=== PATIENT | male | born 1940 | race Caucasian/White ===

== ENCOUNTER 2025-03-06 05:45 | Emergency (ER) | payer OTHER, SELFPAY ==
[2025-03-06 05:46] VITALS: BMI 33.5
[2025-03-06 05:56] VITALS: BP 121/101
[2025-03-06 05:57] VITALS: BP 147/79
[2025-03-06 05:58] VITALS: BP 147/79
[2025-03-06 06:00] VITALS: BP 129/73
--- NOTE | 2025-03-06 06:21 | ED.GENMED ---
History of Present Illness
General
Chief Complaint: Back Pain
Source: patient and ambulance crew
Exam Limitations: none
Time Seen by Provider: 03/06/25 06:08
Nursing documentation reviewed up to this point in time: agreed with
History of Present Illness
History of Present Illness:
84-year-old male with history as noted presents to the ER for evaluation of back pain after fall. Patient reports that the fall occurred a week ago. 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
and he was walking with her to the bathroom when she lost her balance and fell backwards into him. He also fell backwards onto his bottom/back. He says he did not hit his head or pass out. He was able to crawl over to the table so that he can get
up and call EMS and they came to help his up. He says he did not note any injuries at the time and did not have any pain immediately after the fall. Since then he has developed progressively worsening pain in the right flank radiating towards
the right hip which prompted him to come to the ER. He has been taking Tylenol he says with some improvement. He denies any shooting pains down the legs or really any pains at all in the arms and legs 'aside from occasional old-age pains.' He
denies any numbness or weakness in the extremities. He denies any bowel or bladder incontinence issues. He denies any headache or neck pain since the fall. He does have a history of A-fib but is not on blood thinners aside from baby aspirin.
Review of Systems
Review of Systems
All Other Systems: ROS reviewed and negative except as documented in HPI and ROS
Respiratory: Denies trouble breathing
Cardiac: Denies chest pain
ABD/GI: Denies abdominal pain, nausea or vomiting
: Reports flank pain; Denies incontinence
Musculoskeletal: Reports back pain; Denies neck pain
Neurological: Denies dizzy, headache, weakness or numbness
Phy Exam
Physical Exam
Physical Exam:
General: Awake, alert, oriented x3; no acute distress
Head: Normocephalic, atraumatic
Eyes: Conjunctiva normal, EOMI, PERRL bilaterally
Throat: Airway intact, handling secretions
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
Lungs: Breathing comfortably no distress
Heart: Regular rate; no chest wall tenderness or bruising
Abd: Soft, non distended, nontender
Back: No signs of trauma to the back or flank and no midline tenderness of the thoracic and lumbar spine; he does have some mild tenderness in the paraspinal musculature of the lumbar region as well as over the posterior aspect of the pelvic bones
mainly posterior iliac crest
Neuro: Cranial nerves grossly intact, speech fluid, motor and sensory intact in all extremities
Skin: No lacerations or abrasions noted
Extremities: No overt signs of trauma to the extremities; he moves both arms through good range of motion in all large joints without pain and has no tenderness in the arms; there is no tenderness in the legs, has some pain on flexion of the right
hip but only mild pain is able to move it through full range of motion; no pain in the rest of the lower extremities on range of motion of the large joints; good pulses throughout
Scores
Heart Failure Risk
Heart Failure Risk Score: Not Applicable
Heart Score for Chest Pain Patients
STEMI patient?: Not applicable
Withdrawal Assessment of Alcohol
Withdrawal Assessment Completed?: Not applicable
Course
Orders/Labs/Results
Orders:
Orders
03/06/25 06:20
Acetaminophen [Tylenol] 1,000 mg PO NOW STA
Lidocaine [Lidocaine 4% Patch] 1 patch TOPICAL ONCE ONE
Apply Lidocaine patch(s) to:: low back
03/06/25 06:21
CT Abd/pel Without Iv Or Oral Urgent
Comment:
Reason For Exam: right flank and hip pain s/p fall
03/06/25 07:04
Interrogate Pacemaker- Treatment ONCE
03/06/25 07:05
Electrocardiogram (*1) Urgent
Reason for Study: Fatigue / Weakness
EKG- Treatment ONCE
Vital Signs
Initial and Last Documented VS:
Initial Vital Signs
Temp Pulse Resp Pulse Ox
36.5 C 60 18 96
03/06/25 05:51 03/06/25 05:51 03/06/25 05:51 03/06/25 05:51
Last Documented Vital Signs
Temp Pulse Resp BP Pulse Ox
36.5 C 60 18 129/73 96
03/06/25 05:51 03/06/25 06:30 03/06/25 06:30 03/06/25 06:00 03/06/25 06:30
MDM/Problems Addressed
Differential Diagnosis Includes:
Back strain, bulging/herniated disc, compression fracture, pelvic fracture, flank hematoma
MDM/Problems Addressed:
84-year-old male presents after a fall last week complaining of worsening right low back pain. No red flag symptoms. Vitals and exam as above. Plan to check CT to evaluate for vertebral or pelvic fractures or flank hematoma. Will treat
symptomatically. Reassess after the above.
CT reviewed and shows no compression fractures or pelvic fractures or other acute posttraumatic abnormalities. Multiple incidental findings noted and discussed with patient and CT report provided for outpatient follow-up. Symptoms reasonably
controlled with Tylenol and Lidoderm, Toradol and I think given his age risk of opioids or other stronger pain medications outweighs benefits if able to manage with more conservative measures. Stable for discharge, follow-up with primary care
physician. We did do an EKG and interrogate his device in an abundance of caution given his history however he is adamant that he did not pass out and that his fall last week was mechanical while helping his . [employer] device report
shows no events since October. All questions answered.
*Radiology
Radiology exam reviewed: radiology read reviewed
*Pulse Oximetry
SaO2: 98
Oxygen Mode of Delivery: Room air
Patient hypoxic: no (98%)
*EKG
Interpreted by ED Provider?: Yes
Heart Rate: 60
Rate: normal
Rhythm: ventricular paced
*Critical Care Note
Total Time (30-74mins, 75-104mins- exclusive of procedures): Not Applicable
Data Reviewed
Source: patient and ambulance crew
Further Testing Considered But Not Given:
Considered need for CT head at this elderly gentleman with a fall on anticoagulation but given no reported head strike, normal neurostatus without any symptoms, occurrence of fall a week ago no indication for emergent CT head today
ED Attending Note
-
Portions of this chart may have been created with voice recognition software.� Occasional wrong word or��sound alike� substitutions may have occurred due to the inherent limitations of voice recognition software.
Discharge Plan
Departure
Patient Disposition: Home (Routine Discharge)
Date of Disposition: 03/06/25
Time of Disposition: 07:30
Patient with high blood pressure during this ER visit?: Yes
Discharge Problem:
Low back strain, Incidental pulmonary nodule, AAA (abdominal aortic aneurysm)
Prescriptions:
New
lidocaine [Lidocan III] 5 % adhesive patch,medicated
1 patch topical DAILY Qty: 30 0RF
Referrals:
UNKNOWN - PT DOES,NOT KNOW [Family Provider]
Activity Restrictions/Additional Instructions:
You should take Tylenol as needed for pain and you can also apply Lidoderm patches to the back to supplement Tylenol. You can use a heating pack as needed this may provide some relief. You should follow-up with your primary doctor soon as possible
to be reassessed after ER visit and to follow-up on incidental findings on CT.
Thank you for visiting the Emergency Department at [facility].
1. Please schedule a follow up appointment as directed. Call first thing tomorrow morning to make an appointment.
2. If indicated, please take your medications as instructed and indicated on discharge paperwork.
3. If any of your symptoms do not improve, or persist, or become more severe within 6-12 hours, please return to the emergency department for further care.
4. Please return to the emergency department if you develop a headache, neck pain/stiffness, fever greater than 100.4F, chest pain, shortness of breath, persistent nausea, vomiting, slurred speech, difficulty walking, numbness/tingling, weakness,
signs of infection or any other symptoms that are worrisome to you.
Please call [phone] if you have any questions.
Interventions
Interventions:
*Risk Screen - Suicide Last Done: 03/06/25 05:51
*General Assessment Last Done: 03/06/25 05:51
*Neglect/Abuse Screening Last Done: 03/06/25 05:51
*ED- Fall Risk Assessment Last Done: 03/06/25 05:51
*ED COVID-19 Vaccine History Last Done: 03/06/25 05:51
ED-Musculoskeletal Assessment Last Done: 03/06/25 06:01
Discharge Date and Time
Print Language: LAO
[2025-03-06] MEDS: LIDOCAINE 4% PATCH 1 PATCH TOPICAL (06:25)
[2025-03-06] MEDS: TYLENOL 1000 MG PO (06:25)
[2025-03-06 07:00] VITALS: BP 125/70
[2025-03-06 08:00] VITALS: BP 121/73
[2025-03-06] MEDS: TORADOL 30 MG IM (08:02)
== END 2025-03-06 09:38 | disposition home or self-care (01) ==
LOC: EMR 05:45
PROVIDERS: EMERGENCY PHYSICIAN Emergency Medicine
DX: S39.012A Strain of muscle, fascia and tendon of lower back, initial encounter (principal); I71.43 Infrarenal abdominal aortic aneurysm, without rupture; R91.1 Solitary pulmonary nodule; R10.9 Unspecified abdominal pain; W03.XXXA Other fall on same level due to collision with another person, initial encounter; Y93.F9 Activity, other caregiving; R03.0 Elevated blood-pressure reading, without diagnosis of hypertension; I48.91 Unspecified atrial fibrillation; E11.9 Type 2 diabetes mellitus without complications; Z79.82 Long term (current) use of aspirin; Z79.84 Long term (current) use of oral hypoglycemic drugs; Z96.653 Presence of artificial knee joint, bilateral; Z96.642 Presence of left artificial hip joint
CPT/HCPCS: 99284; 96372; 74176; 93005

== ENCOUNTER 2025-06-26 11:58 | Inpatient (IN) | payer OTHER, SELFPAY ==
[2025-06-26] VITALS (11 sets, daily range): BP systolic 103–144; BP diastolic 58–78; PULSE 61–72; BMI 34.1; BMI 33.7
[2025-06-26 09:02] LABS: Hematocrit 35.8 % (39.0-52.0); Hemoglobin 11.9 g/dL (13.0-18.0); Mean Corp Hgb Conc. 33.2 g/dL (33.0-37.0); Mean Corpuscular Volume 96.8 fL (80.0-94.0); Nucleated Red Blood Cells % 0 % (-); Platelet Count 240 10^3/uL (130-400); Red Cell Dist. Width 14.1 % (11.5-14.5)
--- NOTE | 2025-06-26 09:06 | ED.GENMED ---
History of Present Illness
<AMADEO Moore Jr. Last Filed: 06/26/25 10:19>
General
Chief Complaint: Rectal Bleeding
Source: patient
Exam Limitations: none
Time Seen by Provider: 06/26/25 08:34
Nursing documentation reviewed up to this point in time: agreed with
History of Present Illness
History of Present Illness:
84-year-old male past medical history of A-fib s/p watchman, no longer on Eliquis, hypertension presenting to the emergency department today with concerns of bloody stool starting yesterday. No abdominal pain no shortness of breath chest pain
nausea or vomiting. Has been take meloxicam for the past 2 months for some back pain.
Review of Systems
<AMADEO Moore Jr. Last Filed: 06/26/25 10:19>
Review of Systems
Allergies reviewed?: Yes
All Other Systems: ROS reviewed and negative except as documented in HPI and ROS
Phy Exam
<AMADEO Moore Jr. Last Filed: 06/26/25 10:19>
Physical Exam
Physical Exam:
GENERAL: Alert , in no apparent distress
EYE: pupils equal and reactive
NECK: Supple, no significant adenopathy.
ENT: o/p clr, mmm.
CARDIAC: Regular rate and rhythm .
LUNGS: Clear breath sounds bilaterally, no acute respiratory distress, no wheezes/rales/rhonchi
ABDOMEN: Rectal examination revealing red blood, guaiac positive, soft, without focal tenderness, no r/g, no cvat
NEUROLOGICAL: Alert and oriented, no focal neuro deficits
SKIN: Warm and dry, skin intact.
MUSCULOSKELETAL: No edema, well perfused.
PSYCH: Normal and appropriate interaction.
Course
<AMADEO Moore Jr. Last Filed: 06/26/25 10:19>
Orders/Labs/Results
Orders:
Orders
06/26/25 08:36
Basic Metabolic Panel Urgent
Complete Blood Count/With Diff Urgent
Lipase Urgent
06/26/25 08:43
Type And Crossmatch [Type+Screen] Urgent
06/26/25 09:16
Pantoprazole [Protonix IV] 80 mg IV NOW STA
Abnormal Lab Results
06/26/25
08:36
RBC 3.70 L 10^6/uL
(4.70-6.10)
Hgb 11.9 L g/dL
(13.0-18.0)
Hct 35.8 L %
(39.0-52.0)
MCV 96.8 H fL
(80.0-94.0)
MCH 32.2 H pg
(27.0-31.0)
Absolute Lymphs (auto) 0.9 L 10^3/uL
(1.2-3.4)
Lymphocytes % 16.4 L %
(20.5-51.1)
BUN 29 H mg/dl
(9-20)
Glucose 130 H mg/dl
(70-99)
06/26/25 08:36
06/26/25 08:36
Vital Signs
Initial and Last Documented VS:
Initial Vital Signs
Temp Pulse Resp BP Pulse Ox
97.6 F 64 18 131/71 96
06/26/25 08:42 06/26/25 08:42 06/26/25 08:42 06/26/25 08:42 06/26/25 08:42
Last Documented Vital Signs
Temp Pulse Resp BP Pulse Ox
97.6 F 64 18 131/71 96
06/26/25 08:42 06/26/25 08:42 06/26/25 08:42 06/26/25 08:42 06/26/25 09:09
<Reddy Pascual MD - Last Filed: 06/26/25 09:20>
Orders/Labs/Results
Orders:
Orders
06/26/25 08:36
Basic Metabolic Panel Urgent
Complete Blood Count/With Diff Urgent
Lipase Urgent
06/26/25 08:43
Type And Crossmatch [Type+Screen] Urgent
06/26/25 09:16
Pantoprazole [Protonix IV] 80 mg IV NOW STA
Abnormal Lab Results
06/26/25
08:36
RBC 3.70 L 10^6/uL
(4.70-6.10)
Hgb 11.9 L g/dL
(13.0-18.0)
Hct 35.8 L %
(39.0-52.0)
MCV 96.8 H fL
(80.0-94.0)
MCH 32.2 H pg
(27.0-31.0)
Absolute Lymphs (auto) 0.9 L 10^3/uL
(1.2-3.4)
Lymphocytes % 16.4 L %
(20.5-51.1)
BUN 29 H mg/dl
(9-20)
Glucose 130 H mg/dl
(70-99)
06/26/25 08:36
06/26/25 08:36
Vital Signs
Initial and Last Documented VS:
Initial Vital Signs
Temp Pulse Resp BP Pulse Ox
97.6 F 64 18 131/71 96
06/26/25 08:42 06/26/25 08:42 06/26/25 08:42 06/26/25 08:42 06/26/25 08:42
Last Documented Vital Signs
Temp Pulse Resp BP Pulse Ox
97.6 F 64 18 131/71 96
06/26/25 08:42 06/26/25 08:42 06/26/25 08:42 06/26/25 08:42 06/26/25 09:09
<Zachary Gutiérrez Jr., PA-C - Last Filed: 06/26/25 10:19>
MDM/Problems Addressed
MDM/Problems Addressed:
84-year-old male presenting to the emergency department today with concerns of blood with bowel movement starting yesterday again today. Yesterday was with brown stool today was all red blood. Has been take meloxicam over the past few months. Not
on any other blood thinners at this time. Red blood on rectal examination. Hemoglobin 11.9 but no old for comparison. Plan to admit for monitoring and assessment.
<Zachary Gutiérrez Jr., PA-C - Last Filed: 06/26/25 10:19>
*Pulse Oximetry
SaO2: 96
Oxygen Mode of Delivery: Room air
Patient hypoxic: no (96)
*Critical Care Note
Total Time (30-74mins, 75-104mins- exclusive of procedures): Not Applicable
ED Attending Note
<Zachary Gutiérrez Jr., PA-C - Last Filed: 06/26/25 10:19>
-
Portions of this chart may have been created with voice recognition software.� Occasional wrong word or��sound alike� substitutions may have occurred due to the inherent limitations of voice recognition software.
<Reddy Pascual MD - Last Filed: 06/26/25 09:20>
ED Attending Note
Patient seen and examined by attending physician: Yes
I performed the substantive portion of visit, reviewed & personally made and approve the management plan that is documented in note by myself or AYLIN.: Yes
ED Attending Note:
I have seen and evaluated the patient with a [id number] encounter. I have spoken to the [AYLIN] and involved in the medical history, the physical exam, medical decision making.
Evaluation and management service: agree unless noted differently below.
Results interpretation: agree unless noted differently below.
84-year-old man with history of A-fib not currently on anticoagulation presenting to the emergency department rectal bleeding. Patient states that yesterday he noticed some dark blood in the stool and then today it was bright red. He is not on any
blood thinners. He does note that has been taking meloxicam intermittently for the past few months. He does not feel lightheaded dizzy. No abdominal pain. No fevers chills. During my evaluation patient is appears abdomen is soft nondistended
nontender. Per the PA he did have bright red blood per rectum. It is painless. Concern for lower GI bleed. His hemoglobin is 11. Given patient's not have any abdominal pain and likely lower GI bleed we will hold off on CT scan. Patient will
need admission. Will discuss with GI.
Discharge Plan
Departure
Patient Disposition: Admit
Date of Disposition: 06/26/25
Time of Disposition: 10:18
Admit to: Med/Surg
Admit to doctor: Do
Presentation/result/management discussed w/ accepting MD/DO: Hospitalist
Patient with high blood pressure during this ER visit?: No
Condition: Fair
Covid-19: Not Applicable
Discharge Problem:
Rectal bleed
Prescriptions:
No Action
metformin 500 mg Tablet
500 mg PO BID
atorvastatin [Lipitor] 20 mg Tablet
20 mg PO QPM
metoprolol succinate [Toprol XL] 50 mg Tablet Extended Release 24 Hr
50 mg PO BID
cyanocobalamin (vitamin B-12) 1,000 mcg Tablet
1,000 mcg PO DAILY
torsemide 10 mg Tablet
10 mg PO Q48H
aspirin 81 mg Tablet,Delayed Release (Dr/Ec)
81 mg PO DAILY
tamsulosin [Flomax] 0.4 mg Capsule
0.4 mg PO DAILY
pantoprazole [Protonix] 40 mg Tablet,Delayed Release (Dr/Ec)
40 mg PO DAILY
ferrous sulfate 325 mg (65 mg iron) Tablet
325 mg PO DAILY
finasteride 5 mg Tablet
5 mg PO QPM
cholecalciferol (vitamin D3) [Vitamin D3] 25 mcg (1,000 unit) Tablet
25 mcg PO DAILY
Referrals:
Keli Pelayo DO [Family Provider, Internal Medicine]
Interventions
Interventions:
*Risk Screen - Suicide Last Done: 06/26/25 08:37
*General Assessment Last Done: 06/26/25 08:37
*Neglect/Abuse Screening Last Done: 06/26/25 08:37
*ED COVID-19 Vaccine History Last Done: 06/26/25 08:44
*ED Influenza Vaccine History Last Done: 06/26/25 08:44
OU-Wnmrur-Yljhnkcedu Assessment Last Done: 06/26/25 08:47
ED- Pulmonary Assessment Last Done: 06/26/25 08:47
Discharge Date and Time
Print Language: THAI
[2025-06-26 09:26] LABS: Blood Urea Nitrogen 29 mg/dl (9-20); Calcium 9.0 mg/dl (8.4-10.2); Carbon Dioxide 25 mmol/L (22-30); Chloride 105 mmol/L (98-107); Glucose 130 mg/dl (70-99); Lipase 52 U/L (23-300); Sodium 136 mmol/L (135-145); eGFR > 60.00
[2025-06-26] MEDS: PROTONIX IV 80 MG IV (09:39)
--- NOTE | 2025-06-26 10:13 | HPS.HSE ---
Addendum entered and electronically signed by Jose Antonio Lopez MD 06/26/25 13:42:
Seen and examined by me independently in collaboration with the FP resident Dr. Garcia.
Past medical history/social history/medication/allergies reviewed.
Lab data and imaging data reviewed.
Patient presents with bloody bowel movement. He had 1 yesterday and again 1 today. It was more bright red blood per rectum per patient. No abdominal pain. No nausea vomiting.
No dizziness. No chest pain or shortness of breath.
He says he had a colonoscopy 5 years ago.
He also states that a couple of years ago he had a peptic ulcer disease which was bleeding and needed blood transfusion and was treated at [facility].
He is not on any oral anticoagulants. He is on aspirin.
He is without distress. Afebrile. Pulse 61 and blood pressure was 1 4478.
S1 plus S2 heard regular. Chest was clear. Abdomen was soft and benign.
Rectal done by ER physician.
H&H on admission was 11.9 and now prior baseline to compare to. Creatinine was 1.0.
Admit to hospital for GI bleed evaluation.
Diet per GI. Continue with aspirin which is for his CAD and a stent.
Follow H&H closely.
Start on IV PPI.
Hold metformin and follow sliding scale insulin
Continue with metoprolol but hold on torsemide for now. Clinically not in heart failure without shortness of breath, JVD, chest is clear. He has a trace bilateral lower extremity edema. No prior history of heart failure per patient. EKG V paced
rhythm. Biventricular pacemaker noted. No previous EKGs to compare.
Full code
Insert correction phrase
Original Note:
Family Physician
-
Family Physician: Keli Pelayo
Chief Complaint
-
Rectal bleed
History of Present Illness
84-year-old male past medical history of A-fib s/p watchman, not on Eliquis, hypertension , Hyperlipidemia, BPH, GERD, CAD s/p stent X1, mitral valve repair, DM type II presenting to the emergency department today with concerns of bloody bowel
movement. Patient reports he noticed blood in the toilet bowel when he had a bowel movement yesterday. And again in the morning he had a second episode with liquidy stool and a significantly larger amount of blood compared with yesterday. Patient
does not report any abdominal pain, nausea/vomiting, chest pain, SOB, lightheadedness/dizziness, headaches, fever/chills. He has been using meloxicam for the past 2 months for back pain.Patient is also on aspirin. As reported by the patient -he
underwent EGD when he was hospitalized 2 years ago at [facility] diagnosed with peptic ulcer disease, reports he had melena at that time. History of colonoscopy 5 years ago.
ED course�vital stable, patient afebrile. Hemoglobin 11.9, BUN/creatinine 29/1, blood glucose 130. Patient was given IV pantoprazole. GI was consulted.
Medical History
Past Medical History
Past Medical History: Reports Other (A-fib s/p watchman, not on Eliquis, hypertension , Hyperlipidemia, BPH, GERD, CAD s/p stent X1, mitral valve repair, DM type II )
Past Surgical History: Reports Other (Mitral valve repair)
Social History
Tobacco: Non-smoker
Alcohol: None
Drug: None
Personal:
Living: Other ([facility])
Employment: Retired
Family History
Family History: Not pertinent
Allergies / Home Medications
Allergies reflects when Allergies were last updated in [employer].
Home Medications with original date entered in [employer]
Allergy/Medication List:
Allergies
Allergy/AdvReac Type Severity Reaction Status Date / Time
No Known Allergies Allergy Verified 06/26/25 08:34
Home Medications
aspirin 81 mg tablet,delayed release 81 mg PO DAILY Heart Disease/Condition 06/26/25
atorvastatin 20 mg tablet (Lipitor) 20 mg PO QPM High Cholesterol 06/26/25
cholecalciferol (vitamin D3) 25 mcg (1,000 unit) tablet (Vitamin D3) 25 mcg PO DAILY Supplement 06/26/25
cyanocobalamin (vitamin B-12) 1,000 mcg tablet 1,000 mcg PO DAILY Supplement 06/26/25
ferrous sulfate 325 mg (65 mg iron) tablet 325 mg PO DAILY Supplement 06/26/25
finasteride 5 mg tablet 5 mg PO QPM Urinary Issue 06/26/25
metformin 500 mg tablet 500 mg PO BID Diabetes 06/26/25
metoprolol succinate 50 mg tablet,extended release 24 hr (Toprol XL) 50 mg PO BID Heart Disease/Condition 06/26/25
pantoprazole 40 mg tablet,delayed release (Protonix) 40 mg PO DAILY Gastrointestinal Issue 06/26/25
tamsulosin 0.4 mg capsule 0.4 mg PO DAILY Urinary Issue 06/26/25
torsemide 10 mg tablet 10 mg PO Q48H Fluid Retention/Swelling 06/26/25
Review of Systems
-
A 12 point ROS was completed and negative except as noted: Yes
Physical Exam
Vital Signs
Vital Signs
Temp Pulse Resp BP Pulse Ox
97.6 F 64 18 131/71 96
06/26/25 08:42 06/26/25 08:42 06/26/25 08:42 06/26/25 08:42 06/26/25 09:09
Physical Exam
General: No Apparent Distress
HEENT: NormoCephalic and Atraumatic
Respiratory: Clear
Cardiac: S1/S2 and Regular Rhythm
GI: Soft, Non Distended, Normal Bowel Sounds and Tender (Very mild tenderness in the periumbilical region)
Rectal: Other (No hemorrhoids, dried blood around the anal orifice)
Musculoskeletal: Other (1+ bilateral lower extremity edema)
Skin: Warm and Dry
Neuro: Awake, Alert, Oriented, AO x 3 and Nonfocal/grossly intact
Psych: Calm
Laboratory Results
-
06/26/25 08:36
06/26/25 08:36
Laboratory Results
Total Bilirubin Cancelled 06/26/25 08:36
AST Cancelled 06/26/25 08:36
ALT Cancelled 06/26/25 08:36
Alkaline Phosphatase Cancelled 06/26/25 08:36
Lipase 52 U/L (23-300) 06/26/25 08:36
Impression/Plan
-
IMPRESSION:
84-year-old male past medical history of A-fib s/p watchman, not on Eliquis, hypertension , Hyperlipidemia, BPH, GERD, CAD s/p stent X1, mitral valve repair, DM type II presenting to the emergency department with concerns of bloody bowel movement.
PLAN:
#Acute lower GI bleeding
Etiology likely internal hemorrhoids vs diverticulosis versus angiodysplasia versus malignancy/polyps
Patient is hemodynamically stable
Hemoglobin 11.9, nothing previous to compare
Monitor H&H
Blood transfusion consent already obtained by the ER physician, and the patient is okay to undergo transfusion if there is any acute drop in hemoglobin.
IV pantoprazole twice daily
GI consulted
No plan on any procedures today as per GI
Appreciate further recommendations
#DM type II
Continue metformin
Will add SSI
#CAD s/p stent
Can continue aspirin, atorvastatin
#BPH
continue tamsulosin
Continue finasteride
#Lower extremity swelling
Will hold torsemide, soft blood pressures
#Atherosclerotic plaque/AAA
CT abdomen/pelvis 03/06/2025� Severe calcific atherosclerotic plaque in the abdominal aorta and proximal visceral arteries, Mild fusiform infrarenal abdominal aortic aneurysm (2.3 cm).Severe diverticulosis in the sigmoid colon.
Can consider repeat imaging after assessing clinical progress/reevaluation.
DVT prophylaxis�SCDs
Diet�carb controlled
DNR
--- NOTE | 2025-06-26 10:57 | CON.GI ---
Addendum entered and electronically signed by Koki Cabello Do, MD 06/26/25 16:16:
I saw and evaluated the patient. I reviewed the resident�s note and agree with findings and plan as documented in the resident�s note.
Cody is an 84yo M wit h/o afib s/p watchman and remote PUD who was admitted for painless hematochezia x2. Recent mobic use for back pain. Denies constipation but has straining since using oral iron for many years. Last Cscope 5yrs ago. Vitals
stable exam obese abdomen NTTP. Labs reviewed
Impression
- Painless hematochezia
ddx includes diverticular, hemorrhoidal or ectasia
- H/o Afib
- s/p watchman
- Remote PUD
- Recent nsaid use
- GERD
- Hyperlipidemia
- BPH
- Obesity
Recommendations
- Serial H/H
- Ok for regular diet
- Monitor stool output
- Pending above consider colonoscopy inpatient vs outpatient
- C/w PPI
Family updated bedside. Will follow with you
Original Note:
Medical History
Chief Complaint / HPI
Chief Complaint: bright red blood with BM
History of Present Illness:
84yoM PMH afib s/p watchman off anticoagulation, remote hx PUD presenting with painless blood in his stool.
Pt noticed yesterday morning he had painless, maroon colored blood with his BM. Last night, he had another BM with bright red blood and a looser stool today with blood. Denies lightheadedness or dizziness. He reports the blood was all over the
toilet bowl and surrounding the stool, not in the stool, but was unable to quantify amount. Denies any pain in his abdomen or with defecation. Pt reports normal appetite, last meal being last night. Denies nausea, vomiting, diarrhea. Denies throat
pain or reflux. He reports having very occasional, mild episodes of GERD that he does not take anything for. Russell hx abdominal surgery or hx of GI issues beyond PUD dx a few years ago that resolved with daily pantoprazole he continues to take every
day.
Pt reports not currently feeling constipated or bloated. However, he stated that he does feel constipated when he takes oral iron and tries taking small red pill laxative, likely dulcolax, to alleviate his constipation that does not work well. He
reports having about a BM a day but often feels constipated on the days he takes iron. PCP instructed him to take B12 and iron. Pt recalls being told his Hg/iron was borderline low when he was instructed to take both. He takes a baby aspirin daily,
last taken yesterday morning. Pt was prescribed meloxicam for back pain after a fall in February. He last took it last night.
Last colonoscopy he reports was over 5 years ago at [facility] [place]. At that time, he reports having no acute findings. Last EGD was what the pt recalls being a few years ago with findings of PUD. Denies having blood in his stool at that time.
Past Medical History
Past Medical History: Arrhythmias (afib) and Other (PUD a few years ago)
Past Surgical History: Other (no abdominal surgery)
Social History
Tobacco: Non-Smoker
Alcohol: None
Living: Alone (at [facility]. lives at senior living section of [facility] with dementia)
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
Allergies / Home Medications
Allergy/AdvReac Type Severity Reaction Status Date / Time
No Known Allergies Allergy Verified 06/26/25 08:34
�Medication �Instructions �Recorded
aspirin 81 mg tablet,delayed 81 mg PO DAILY Heart 06/26/25
release Disease/Condition
atorvastatin 20 mg tablet (Lipitor) 20 mg PO QPM High Cholesterol 06/26/25
cholecalciferol (vitamin D3) 25 25 mcg PO DAILY Supplement 06/26/25
mcg (1,000 unit) tablet (Vitamin
D3)
cyanocobalamin (vitamin B-12) 1,000 mcg PO DAILY Supplement 06/26/25
1,000 mcg tablet
ferrous sulfate 325 mg (65 mg 325 mg PO DAILY Supplement 06/26/25
iron) tablet
finasteride 5 mg tablet 5 mg PO QPM Urinary Issue 06/26/25
metformin 500 mg tablet 500 mg PO BID Diabetes 06/26/25
metoprolol succinate 50 mg 50 mg PO BID Heart 06/26/25
tablet,extended release 24 hr Disease/Condition
(Toprol XL)
pantoprazole 40 mg tablet,delayed 40 mg PO DAILY Gastrointestinal 06/26/25
release (Protonix) Issue
tamsulosin 0.4 mg capsule 0.4 mg PO DAILY Urinary Issue 06/26/25
torsemide 10 mg tablet 10 mg PO Q48H Fluid 06/26/25
Retention/Swelling
Review of Systems
-
History Source: Patient
All other systems: A 12 pt ROS was Negative except as stated above in HPI
Abdomen/GI: Reports Bloody Stools
Vital Signs
Temp Pulse Resp BP Pulse Ox
97.6 F 66 17 107/62 96
06/26/25 08:42 06/26/25 10:45 06/26/25 10:45 06/26/25 10:00 06/26/25 10:45
Physical Exam
Exam
General: Well Developed, Well Nourished, No Apparent Distress and Comfortable
HEENT: Normocephalic, Anicteric and Moist Mucous Membranes
Respiratory: Clear and Non Labored Respirations
Cardiac: S1/S2 and Regular Rhythm
GI: Soft, Non Tender and Non Distended
Rectal: Brown and Other (visual rectal exam performed with Dr. Nicolás Garcia, no hemorrhoids visualized); Negative Hemorrhoids
Musculoskeletal: Edema (R>L, pt reported baseline)
Skin: Warm and Dry
Neuro: AO x 3 and Nonfocal/Grossly Intact
Psych: Calm
Results
WBC 5.3 10^3/uL (4.8-10.8) 06/26/25 08:36
Hgb 11.9 g/dL (13.0-18.0) L 06/26/25 08:36
Hct 35.8 % (39.0-52.0) L 06/26/25 08:36
MCV 96.8 fL (80.0-94.0) H 06/26/25 08:36
Plt Count 240 10^3/uL (130-400) 06/26/25 08:36
Absolute Neuts (auto) 3.9 10^3/uL (1.4-6.5) 06/26/25 08:36
Sodium 136 mmol/L (135-145) 06/26/25 08:36
Potassium mmol/L (3.5-5.1) 06/26/25 08:36
Chloride 105 mmol/L (98-107) 06/26/25 08:36
Carbon Dioxide 25 mmol/L (22-30) 06/26/25 08:36
BUN 29 mg/dl (9-20) H 06/26/25 08:36
Creatinine 1.0 mg/dL (0.7-1.3) 06/26/25 08:36
Calcium 9.0 mg/dl (8.4-10.2) 06/26/25 08:36
Total Bilirubin Cancelled 06/26/25 08:36
AST Cancelled 06/26/25 08:36
ALT Cancelled 06/26/25 08:36
Alkaline Phosphatase Cancelled 06/26/25 08:36
Lipase 52 U/L (23-300) 06/26/25 08:36
Diagnostic Image Results: Ct 03/06/25
IMPRESSION:
4. Severe diverticulosis in the sigmoid colon.
5. Moderate chronic bilateral renal disease.
6. Severe calcific atherosclerotic plaque in the abdominal aorta and proximal visceral arteries.
7. Mild fusiform infrarenal abdominal aortic aneurysm (2.3 cm).
8. Mildly distended gallbladder.
12. 4.9 mm solid pulmonary nodule in the right middle lobe.
Prior GI Procedures:
EGD:
Colonoscopy:
Assessment / Plan
-
84yoM PMH afib s/p watchman off anticoagulation, remote hx PUD presenting with painless, bright red blood in his stool for the last day.
Mr Hendrickson is hemodynamically stable without lightheadedness presenting with painless, bright red blood per rectum. Denies abdominal pain or pain with defecation. Meloxicam last taken yesterday night. His symptoms are unlikely a brisk UGI bleed given
his hemodynamics and stable Hg 11.9. No epigastric pain. Last colonoscopy at [facility] that the pt reports had no significant findings within the last 10 years. Pt takes daily oral iron with reported chronic constipation. Unlikely diverticular bleed
given lack of symptomatic anemia. His symptoms align likely with internal hemorrhoidal bleed given chronicity and hx of constipation and painless bleeding. Aspirin last taken yesterday morning.
#BRBPR
- Start bowel regimen miralax daily
- Hold meloxicam. Continue home PPI
- Holding colonoscopy currently. Monitor H and H
- Transfuse H<7
PENDING ATTENDING RECOMMENDATIONS
-
-
Thank you for consultation and allowing me to participate in the patient's care. Please call the job honer GI physician during the after hours with any questions or concerns.
--- NOTE | 2025-06-26 11:28 | CM ---
Chart reviewed and spoke with patient at bedside
He lives alone in [facility]
He is ambulating with cane or walker
His Stephanie is in [facility] due to dementia
One son lives in [place]
Dtr lives in [place] who is made aware of his ED visit today
Another son lives in [place] but he is estranged
DME walker, cane and CPAP
PCP Dr Beal
Pharmacy [facility] pharmacy
no hx VN nor SNF
DCP is home with services when medically stable
CM will continue to follow up for any dcp needs
[2025-06-26 13:27] LABS: Glucose - Point of Care 115 mg/dl (70-99)
[2025-06-26] MEDS: FLOMAX 0.4 MG PO (13:56)
[2025-06-26] MEDS: LIPITOR 20 MG PO (13:59)
[2025-06-26 15:01] LABS: Hematocrit 33.6 % (39.0-52.0); Hemoglobin 10.7 g/dL (13.0-18.0)
[2025-06-26 17:00] LABS: Glucose - Point of Care 144 mg/dl (70-99)
[2025-06-26] MEDS: NOVOLOG FLEXPEN-LOW RESISTANCE SC (17:00)
[2025-06-26 17:13] LABS: Ferritin 44.8 ng/ml (17.9-464.0)
[2025-06-26] MEDS: LIPITOR PO (17:19)
[2025-06-26] MEDS: PROSCAR 5 MG PO (17:20)
[2025-06-26] MEDS: GLUCOPHAGE 500 MG PO (17:20)
[2025-06-26 17:44] LABS: Folate 13.6 ng/ml (2.76-20); Vitamin B12 461 pg/ml (239-931)
[2025-06-26] MEDS: TOPROL XL 50 MG PO (20:20)
[2025-06-26] MEDS: NSS (PRESERVATIVE FREE) IV (20:20)
[2025-06-26 21:24] LABS: Glucose - Point of Care 128 mg/dl (70-99)
[2025-06-26 22:17] LABS: Iron 47 ug/dl (49-181)
[2025-06-26 22:26] LABS: Total Iron Binding Capacity 278 ug/dl (261-462)
[2025-06-27] VITALS (9 sets, daily range): BP systolic 85–141; BP diastolic 56–76; PULSE 54–69
--- NOTE | 2025-06-27 06:28 | PTCARENOTE ---
Pt had a large bloody bowel movement. It was alot of blood in the toilet. Dark red bloody stool. VS were taken- 124/69, p-61, pulse ox- 97% room air. He is in bed, resting. Denies any pain. FINANCE EXECUTIVE notified.
--- NOTE | 2025-06-27 07:06 | W.PN.UPDATE ---
Update Note
Progress Note Update
~ 6:30 am RN reported that patient had a large, bloody bowel movement. Dark red bloody stool.
Vital signs BP 124/69, HR 61, pulsox 97 on room air. Patient resting in bed, denies any pain, dizziness, palpitations. Serial H&H ordered, next due @ 6 am. Transfuse for Hgb <8 w/active bleed. Consent scanned in chart. Type and screen done.
[2025-06-27 08:15] LABS: Glucose - Point of Care 135 mg/dl (70-99)
[2025-06-27 08:32] LABS: Albumin 3.4 g/dl (3.5-5.0); Blood Urea Nitrogen 30 mg/dl (9-20); Calcium 8.7 mg/dl (8.4-10.2); Chloride 106 mmol/L (98-107); Potassium 4.4 mmol/L (3.5-5.1); Sodium 133 mmol/L (135-145); Total Protein 6.1 g/dl (6.3-8.2)
[2025-06-27 08:35] LABS: Hematocrit 32.1 % (39.0-52.0); Hemoglobin 10.0 g/dL (13.0-18.0); Mean Corp Hgb Conc. 31.2 g/dL (33.0-37.0); Mean Corpuscular Volume 99.4 fL (80.0-94.0); Nucleated Red Blood Cells % 0 % (-); Platelet Count 206 10^3/uL (130-400); Red Cell Dist. Width 14.3 % (11.5-14.5)
[2025-06-27 08:42] LABS: ALT (SGPT) < 10 U/L (0-50); AST (SGOT) 14 U/L (17-59); Alkaline Phosphatase 58 U/L (38-126); Carbon Dioxide 24 mmol/L (22-30); Estimated Creatinine Clearance 69 ml/min; Glucose 124 mg/dl (70-99); eGFR > 60.00
[2025-06-27] MEDS: NOVOLOG FLEXPEN-LOW RESISTANCE SC ×2 (09:06→17:22)
[2025-06-27] MEDS: TOPROL XL 50 MG PO ×2 (09:08→20:50)
[2025-06-27] MEDS: VITAMIN B-12 1000 MCG PO (09:08)
[2025-06-27] MEDS: GLUCOPHAGE 500 MG PO (09:08)
[2025-06-27] MEDS: VITAMIN D3 (cholecalciferol) 25 MCG PO (09:08)
[2025-06-27] MEDS: FLOMAX 0.4 MG PO (09:08)
[2025-06-27] MEDS: ASPIR LOW (ENTERIC COATED) 81 MG PO (09:08)
[2025-06-27] MEDS: PROTONIX IV 40 MG IV ×2 (09:09→20:49)
[2025-06-27] MEDS: FLUSH (NSS) 1 FLUSH IV (09:09)
[2025-06-27] MEDS: NSS (PRESERVATIVE FREE) 10 ML IV ×2 (09:09→20:49)
[2025-06-27] MEDS: NULYTELY SOLUTION 4 LITERS PO (10:32)
[2025-06-27] MEDS: DULCOLAX 10 MG PO (10:32)
[2025-06-27 10:47] LABS: Glycohemoglobin (HgbA1c) 6.5 % (4.0-5.9)
--- NOTE | 2025-06-27 10:52 | W.PN.GI.CBS2 ---
Addendum entered and electronically signed by Koki Cabello Do, MD 06/27/25 11:59:
I saw and evaluated the patient. I reviewed the resident�s note and agree with findings and plan as documented in the resident�s note.
Patient passed another bloody BM yesterday and H/H downtrending. Vitals stable exam obese NTTP steady with cane. Labs reviewed iron deficiency
Recommendations
- CLD now and NPO at [place]
- Anticipate colonoscopy tomorrow if no significant findings seen add EGD
- C/w PPI IV daily basis
- C/w IV iron
Will follow with you
Original Note:
Today's Communication / Plan
-
PENDING ATTENDING RECOMMENDATIONS
Colonoscopy tomorrow
Assessment / Plan
-
84yoM PMH afib s/p watchman off anticoagulation, remote hx PUD presenting with painless, bright red blood in his stool for the last day.
Mr Hendrickson is hemodynamically stable without lightheadedness presenting with painless, bright red blood per rectum. Denies abdominal pain or pain with defecation. His symptoms are unlikely a brisk UGI bleed given his hemodynamics and stable Hg 11.9.
No epigastric pain. Last colonoscopy at [facility] that the pt reports had no significant findings within the last 10 years. Pt takes daily oral iron with reported chronic constipation. Aspirin last taken yesterday morning.
Today, pt continues to be hemodynamically stable without symptoms of anemia or abdominal pain but continues to have blood with his stools. Hg 10 down from 10.7 yesterday afternoon. Plan for colonoscopy tomorrow. Differential continues to include
diverticular bleed vs hemorrhoidal vs ectasia.
#BRBPR
- Hold meloxicam. Continue home PPI
- Monitor H and H
- Transfuse H<7
- Bowel prep today. Plan for colonoscopy tomorrow
- Clears. NPO before procedure
Subjective
Subjective
Date of Service: June 27, 2025
Mr. Hendrickson is feeling well today reporting continued blood and melena in stool. Pt reports significantly reduced bright red blood, but nursing and pt describe more melena today. Denies lightheadedness, dizziness, abdominal pain. He does describes a
new urgency with BM that is worse today than yesterday.
Objective
Data Reviewed
Laboratory Data:
Laboratory Results
06/27/25 07:24
06/27/25 07:24
Laboratory Results
Total Bilirubin 0.8 mg/dl (0.2-1.3) 06/27/25 07:24
AST 14 U/L (17-59) L 06/27/25 07:24
ALT < 10 U/L (0-50) 06/27/25 07:24
Alkaline Phosphatase 58 U/L (38-126) 06/27/25 07:24
Lipase 52 U/L (23-300) 06/26/25 08:36
Vital Signs and I&O:
Vital Signs
Temp Pulse Resp BP Pulse Ox
98.1 F 61 18 116/56 94
06/27/25 07:20 06/27/25 09:08 06/27/25 07:20 06/27/25 09:08 06/27/25 07:20
I&O
06/26/25 06/27/25 06/28/25
06:59 06:59 06:59
Intake Total 480 / 480
Balance 480 / 480
Physical Exam
Physical Exam
HEENT: Anicteric and Moist mucous membranes
Cardiology: Normal Sinus Rhythm
Pulmonary: Clear
GI: Soft, Non Distended and Non Tender
Extremities: No Edema
Neuro: Non Focal
--- NOTE | 2025-06-27 11:07 | W.PN.HOSP.TC ---
Today's Communication/Plan
-
Colonoscopy tomorrow
Follow H&H
Assessment / Plan
Assessment / Plan
#Acute lower GI bleeding with painless hematochezia
Etiology likely internal hemorrhoids vs diverticulosis versus angiodysplasia versus malignancy/polyps
Patient is hemodynamically stable
Hemoglobin 11.9, nothing previous to compare
Ongoing bloody bowel movement with hemoglobin dropped to 10. Blood pressure remained stable.
Monitor H&H
Aim to keep HH more than 8
IV pantoprazole twice daily
GI colonoscopy tomorrow
#DM type II
Hold metformin
Will add SSI
#CAD s/p stent
Can continue aspirin, atorvastatin
#BPH
continue tamsulosin
Continue finasteride
#Lower extremity swelling
Will hold torsemide
#Atherosclerotic plaque/AAA
CT abdomen/pelvis 03/06/2025� Severe calcific atherosclerotic plaque in the abdominal aorta and proximal visceral arteries, Mild fusiform infrarenal abdominal aortic aneurysm (2.3 cm).Severe diverticulosis in the sigmoid colon.
Can consider repeat imaging after assessing clinical progress/reevaluation.
DVT prophylaxis�SCDs
Diet�carb controlled
Discussed with family at bedside
DNR
Anticipated Discharge: > 48 hours
Subjective/Interval History
-
Date of Service: June 27, 2025
Had a large bloody bowel movement yesterday evening.
Denies any abdominal pain. Denies any dizziness. No chest pain or shortness of breath.
Objective Data
-
Labs:
Laboratory Results
06/27/25
07:24
WBC 5.0
Hgb 10.0 L
Hct 32.1 L
Plt Count 206
Sodium 133 L
Potassium 4.4
Chloride 106
Carbon Dioxide 24
BUN 30 H
Creatinine 1.0
Glucose 124 H
Calcium 8.7
Total Bilirubin 0.8
AST 14 L
ALT < 10
Alkaline Phosphatase 58
Vital Signs:
Vital Signs
Temp Pulse Resp BP Pulse Ox
98.1 F 61 18 116/56 94
06/27/25 07:20 06/27/25 09:08 06/27/25 07:20 06/27/25 09:08 06/27/25 07:20
I&O
06/26/25 06/27/25 06/28/25
06:59 06:59 06:59
Intake Total 480 / 480
Balance 480 / 480
Physical Exam
-
General: Comfortable
Respiratory: Clear to Auscultation and Non Labored Respirations; Negative Accessory Resp Muscle Use
Cardiac: Regular Rhythm and S1/S2; Negative Tachycardic
GI: Soft, Nontender, Nondistended and Normal Bowel Sounds
Neuro: AO x 3
Data Reviewed
-
Labs: Labs Reviewed by me
[2025-06-27 11:59] LABS: Glucose - Point of Care 159 mg/dl (70-99)
[2025-06-27] MEDS: NOVOLOG FLEXPEN-LOW RESISTANCE 1 UNITS SC (12:40)
--- NOTE | 2025-06-27 13:49 | PN.CDI ---
CDI
- -
CDI:
Physician Documentation Request
Admit Date: 06/26/25 11:58
Dear Doctor,
Please review the following and provide your response in the progress notes.
Clinical Indicators:
Pt admitted for Acute lower GI bleeding with painless hematochezia
Pt with PMH of A-fib s/p watchman, not on Eliquis
If possible, please provide further specificity regarding atrial fibrillation, such as:
Paroxysmal atrial fibrillation - terminates spontaneously or with intervention within 7 days of onset
Persistent atrial fibrillation - episodes of continuous AF that last more than 7 days and do not self-terminate
Permanent atrial fibrillation - when a decision has been made to accept the presence of AF and there is no further attempt to restore or maintain sinus rhythm
Other - please specify
Unable to further specify
Use of terms such as suspected, likely, concern for, or probable (associated with a specific diagnosis that is being evaluated, monitored, or treated as if it exists) are acceptable and can be coded in the inpatient setting, when documented at the
time of discharge.
Thank you,
Amada Sutherland RN, BSN
CDI Specialist
[place] [facility]
Please use your independent medical judgment in providing your response.
[2025-06-27 16:48] LABS: Glucose - Point of Care 143 mg/dl (70-99)
--- NOTE | 2025-06-27 17:07 | PTCARENOTE ---
Pt AAO x3, RIVERO; OOB to BSC with assist x1/cane, no c/o weakness/dizziness. VSS. Telemetry:V-paced rhythm. On room air-pulseox 98%, no SOB noted. Abd obese, soft, maurice small amts clear liquids; stated he is 'full' after taking Go-lytely bowel
prep; pt aware of NPO past midnight for colonoscopy 06/28. Pt had very large amts of dark formed stool and melena after taking bowel prep. Voids in BSC (mixed with BM). Resting in bed at present. Will continue to monitor.
[2025-06-27] MEDS: LIPITOR 20 MG PO (17:56)
[2025-06-27] MEDS: PROSCAR 5 MG PO (17:56)
[2025-06-27 23:49] LABS: Glucose - Point of Care 112 mg/dl (70-99)
[2025-06-28] VITALS (8 sets, daily range): BP systolic 18–130; BP diastolic 56–73
[2025-06-28 06:24] LABS: Glucose - Point of Care 125 mg/dl (70-99)
[2025-06-28 07:27] LABS: Hematocrit 28.7 % (39.0-52.0); Hemoglobin 9.1 g/dL (13.0-18.0); Mean Corp Hgb Conc. 31.7 g/dL (33.0-37.0); Mean Corpuscular Volume 98.6 fL (80.0-94.0); Platelet Count 205 10^3/uL (130-400); Red Cell Dist. Width 14.4 % (11.5-14.5)
[2025-06-28 12:04] LABS: Glucose - Point of Care 142 mg/dl (70-99)
[2025-06-28] MEDS: ASPIR LOW (ENTERIC COATED) PO (12:18)
[2025-06-28] MEDS: VITAMIN D3 (cholecalciferol) 25 MCG PO (12:19)
[2025-06-28] MEDS: VITAMIN B-12 1000 MCG PO (12:19)
[2025-06-28] MEDS: TOPROL XL 50 MG PO ×2 (12:19→21:38)
[2025-06-28] MEDS: PROTONIX IV 40 MG IV ×2 (12:19→20:00)
[2025-06-28] MEDS: NSS (PRESERVATIVE FREE) 10 ML IV ×2 (12:19→21:37)
[2025-06-28] MEDS: FLOMAX 0.4 MG PO (12:19)
--- NOTE | 2025-06-28 12:35 | W.PN.HOSP.TC ---
Addendum entered and electronically signed by Jose Antonio Lopez MD 06/29/25 10:25:
Hyponatremia -suspect hypovolemia related -follow
Original Note:
Today's Communication/Plan
-
Start on clears.
Follow H&H.
Assessment / Plan
Assessment / Plan
#Acute lower GI bleeding with painless hematochezia secondary to diverticular bleed
Colonoscopy today showed
Preparation of the colon was poor with an extensive amount of old
blood, clots and stool throughout the colon. This was washed
extensively with fresher red blood within the sigmoid colon upon
withdrawal suggestive of ongoing bleeding.
- The examined portion of the ileum was normal without any old or
fresh blood.
- A few, shallow, well-healed ulcers in the ascending colon.
Endoscopically, suspicious for NSAID-induced ulcerations. Not the
source of presentation. Biopsied.
- Diverticulosis in the entire examined colon. This was most
pronounced within the sigmoid colon with fresh red blood seen within
the sigmoid colon suggestive of a left-sided diverticular hemorrhage.
- The distal rectum and anal verge are normal on retroflexion view.
- The examination was otherwise normal on direct and retroflexion
views.
Stat CT angiogram showed no evidence of active bleeding.
Patient asymptomatic without dizziness today. Blood pressure 124/66. H&H low drop from 11.9-9.1 today.
Discussed with GI-start on clear liquids
Follow H&H closely
Aim to keep HH more than [address] angiogram if there is significant rectal bleeding again
#DM type II
Hold metformin
Continue with SSI
#CAD s/p stent
Can atorvastatin. Hold aspirin for today due to significant bleeding in the colon. Patient without angina or chest pain.
#BPH
continue tamsulosin
Continue finasteride
#Lower extremity swelling
Will hold torsemide
#Atherosclerotic plaque/AAA
CT abdomen/pelvis 03/06/2025� Severe calcific atherosclerotic plaque in the abdominal aorta and proximal visceral arteries, Mild fusiform infrarenal abdominal aortic aneurysm (2.3 cm).Severe diverticulosis in the sigmoid colon.
Can consider repeat imaging after assessing clinical progress/reevaluation.
DVT prophylaxis�SCDs
Diet�carb controlled
Discussed with family at bedside
DNR
Discussed with GI
Anticipated Discharge: > 48 hours
Subjective/Interval History
-
Date of Service: June 28, 2025
Came back from colonoscopy which showed large amount of blood. Subsequently had a stat CT angiogram which was negative.
Currently denying any nausea vomiting or abdominal pain. No dizziness. Denies any shortness of breath.
Objective Data
-
Labs:
Laboratory Results
06/28/25 06/28/25 06/28/25
06:30 09:00 17:00
WBC 3.3 L
Hgb 9.1 L Pending Pending
Hct 28.7 L Pending Pending
Plt Count 205
Vital Signs:
Vital Signs
Temp Pulse Resp BP Pulse Ox
97.9 F 61 18 124/66 96
06/28/25 11:24 06/28/25 11:24 06/28/25 11:24 06/28/25 11:24 06/28/25 11:24
I&O
06/27/25 06/28/25 06/29/25
06:59 06:59 06:59
Intake Total 480 / 480 1240 / 1240
Balance 480 / 480 1240 / 1240
Physical Exam
-
General: Comfortable
Respiratory: Clear to Auscultation (Anteriorly), Non Labored Respirations and Accessory Resp Muscle Use
Cardiac: Regular Rhythm and S1/S2
GI: Soft, Nontender, Nondistended and Normal Bowel Sounds
Neuro: AO x 3
Data Reviewed
-
Labs: Labs Reviewed by me
--- NOTE | 2025-06-28 12:49 | CM ---
Chart reviewed. Care ongoing.
Colonoscopy today
Start on clear liquids
CM will cont following for d/c needs
Plan: Home, no needs at this time
[2025-06-28 13:06] LABS: Hematocrit 28.6 % (39.0-52.0); Hemoglobin 8.9 g/dL (13.0-18.0)
[2025-06-28 16:28] LABS: Glucose - Point of Care 170 mg/dl (70-99)
[2025-06-28] MEDS: PROSCAR 5 MG PO (17:12)
[2025-06-28] MEDS: LIPITOR 20 MG PO (17:12)
[2025-06-28] MEDS: NOVOLOG FLEXPEN-LOW RESISTANCE 1 UNITS SC (17:12)
[2025-06-28 17:19] LABS: Hematocrit 29.6 % (39.0-52.0); Hemoglobin 9.5 g/dL (13.0-18.0)
[2025-06-28 21:24] LABS: Glucose - Point of Care 133 mg/dl (70-99)
[2025-06-29 01:49] LABS: Hematocrit 25.7 % (39.0-52.0); Hemoglobin 8.2 g/dL (13.0-18.0)
[2025-06-29 03:53] VITALS: BP 102/58
[2025-06-29 06:31] LABS: Hematocrit 27.0 % (39.0-52.0); Hemoglobin 8.4 g/dL (13.0-18.0); Mean Corp Hgb Conc. 31.1 g/dL (33.0-37.0); Mean Corpuscular Volume 99.3 fL (80.0-94.0); Platelet Count 194 10^3/uL (130-400); Red Cell Dist. Width 14.6 % (11.5-14.5)
--- NOTE | 2025-06-29 06:42 | W.PN.GI.CBS2 ---
Today's Communication / Plan
-
Drop in Hgb however likely lag and suspect resolving diverticular hemorrhage without signs to suggest recurrent GI bleeding. If recurrent brisk hematochezia or other concern for re-bleeding, would obtain stat CTA and IR consult if (+). GI will
continue to follow.
Assessment / Plan
-
Mr. Hendrickson is a 84 y.o male with a past medical history of A FIb (s/p watchman, off a/c) and history of PUD with recent NSAID use who presented with painless hematochezia concerning for diverticular hemorrhage.
#Hematochezia 2/2
#Diverticular Hemorrhage
#Acute Blood Loss Anemia
#Few, Well-healed Colonic Ulcers
#Recent NSAIDs
#A Fib (off a/c)
S/p EGD/colonoscopy 06/28/25: EGD with mild gastroduodenitis (felt 2/2 NSAIDs) otherwise unremarkable upper GI tract. Colonoscopy revealed large amount of blood throughout colon with fresh red blood within sigmoid colon suggestive of left-sided
diverticular hemorrhage, otherwise normal ileum and few shallow-based well-healed ulcers in the ascending colon (felt 2/2 NSAIDs). Eventual CTA WWO contrast 06/28/2025- Impression: No intraluminal extravasation of contrast to suggest active
hemorrhage at the time of imaging. Mild sigmoid diverticulosis without evidence of diverticulitis
Ongoing drop in H/h however likely lag from prior diverticular bleed without further brisk hematochezia. Still passing old blood without concern for recurrent diverticular hemorrhage. Continues to remain HD-stable.
Recommendations:
- Tolerating CLD, may ADAT if repeat Hgb remains stable
- Trend Hgb with CBC q 12 hrs, transfuse for goal Hgb > 7.0
- Await path results from EGD/Colon and suspect NSAID-induced ulcerations in colon given appearance and not source of presentation
- No plans for repeat endoscopic evaluation at this time
- If recurrent large volume hematochezia, significant drop in Hgb > 2 grams, or concern for HD-instability would obtain stat CTA in attempts of localization and consult IR if (+)
- Rest of ongoing supportive care as per primary team
GI will continue to follow. Please call with any questions or concerns.
Subjective
Subjective
Date of Service: June 29, 2025
- S/p EGD/colonoscopy 06/28/25: EGD with mild gastroduodenitis (felt 2/2 NSAIDs) otherwise unremarkable upper GI tract. Colonoscopy revealed large amount of blood throughout colon with fresh red blood within sigmoid colon suggestive of left-sided
diverticular hemorrhage, otherwise normal ileum and few shallow-based well-healed ulcers in the ascending colon (felt 2/2 NSAIDs)
- CTA WWO contrast 06/28/2025- Impression: No intraluminal extravasation of contrast to suggest active hemorrhage at the time of imaging. Mild sigmoid diverticulosis without evidence of diverticulitis
- Hgb 9.5 -> 8.2 -> 8.4. Otherwise, remains HD-stable
Feeling well and resting comfortably this AM. Had two dark red bloody bowel movements but denies any passage of bright red blood. Continues to deny any nausea/vomiting or abdominal pain. Tolerating CLD without difficulty. Discussed his recent
EGD/colon findings as well as his prior CT imaging and suspect resolving diverticular hemorrhage.
Objective
Data Reviewed
Laboratory Data:
Laboratory Results
06/29/25 06:05
Laboratory Results
Total Bilirubin 0.8 mg/dl (0.2-1.3) 06/27/25 07:24
AST 14 U/L (17-59) L 06/27/25 07:24
ALT < 10 U/L (0-50) 06/27/25 07:24
Alkaline Phosphatase 58 U/L (38-126) 06/27/25 07:24
Lipase 52 U/L (23-300) 06/26/25 08:36
Vital Signs and I&O:
Vital Signs
Temp Pulse Resp BP Pulse Ox
97.7 F 65 18 102/58 97
06/29/25 03:53 06/29/25 03:53 06/29/25 03:53 06/29/25 03:53 06/29/25 03:53
I&O
06/27/25 06/28/25 06/29/25
06:59 06:59 06:59
Intake Total 480 / 480 1240 / 1240 900 / 900
Balance 480 / 480 1240 / 1240 900 / 900
Physical Exam
Physical Exam
HEENT: Anicteric and Moist mucous membranes
Pulmonary: Other (Normal WOB on room air)
GI: Soft, Non Distended and Non Tender
Extremities: No Edema and Warm
Neuro: Non Focal
[2025-06-29 07:02] LABS: Blood Urea Nitrogen 13 mg/dl (9-20); Calcium 8.3 mg/dl (8.4-10.2); Carbon Dioxide 26 mmol/L (22-30); Chloride 106 mmol/L (98-107); Estimated Creatinine Clearance 76 ml/min; Glucose 115 mg/dl (70-99); Potassium 4.4 mmol/L (3.5-5.1); Sodium 132 mmol/L (135-145); eGFR > 60.00
[2025-06-29 07:21] LABS: Glucose - Point of Care 158 mg/dl (70-99)
[2025-06-29 07:56] VITALS: BP 130/55
[2025-06-29] MEDS: FLOMAX 0.4 MG PO (08:26)
[2025-06-29] MEDS: VITAMIN B-12 1000 MCG PO (08:26)
[2025-06-29] MEDS: VITAMIN D3 (cholecalciferol) 25 MCG PO (08:27)
[2025-06-29] MEDS: TOPROL XL 50 MG PO ×2 (08:27→21:04)
[2025-06-29] MEDS: PROTONIX IV 40 MG IV ×2 (08:28→21:05)
[2025-06-29] MEDS: NOVOLOG FLEXPEN-LOW RESISTANCE 1 UNITS SC (09:02)
[2025-06-29] MEDS: NSS (PRESERVATIVE FREE) 10 ML IV ×2 (09:02→21:05)
--- NOTE | 2025-06-29 10:21 | W.PN.HOSP.TC ---
Today's Communication/Plan
-
If no further active GI bleed will start on full liquids tonight.
Follow H&H.
Assessment / Plan
Assessment / Plan
#Acute lower GI bleeding with painless hematochezia secondary to diverticular bleed
# Acute blood loss anemia
Colonoscopy today showed
Preparation of the colon was poor with an extensive amount of old
blood, clots and stool throughout the colon. This was washed
extensively with fresher red blood within the sigmoid colon upon
withdrawal suggestive of ongoing bleeding.
- The examined portion of the ileum was normal without any old or
fresh blood.
- A few, shallow, well-healed ulcers in the ascending colon.
Endoscopically, suspicious for NSAID-induced ulcerations. Not the
source of presentation. Biopsied.
- Diverticulosis in the entire examined colon. This was most
pronounced within the sigmoid colon with fresh red blood seen within
the sigmoid colon suggestive of a left-sided diverticular hemorrhage.
- The distal rectum and anal verge are normal on retroflexion view.
- The examination was otherwise normal on direct and retroflexion
views.
Stat CT angiogram showed no evidence of active bleeding.
Patient asymptomatic without dizziness. Remains hemodynamically stable. Slow H&H dropped to 8.4 noted. The last 2 readings have been stable. No bloody bowel movements today.
Discussed with GI-if no further bloody bowel movements will advance diet to full liquid diet
Follow H&H closely
Aim to keep HH more than [address] angiogram if there is significant rectal bleeding again
#DM type II
Hold metformin
Continue with SSI
#CAD s/p stent
Can atorvastatin. Hold aspirin for today due to significant bleeding in the colon. Patient without angina or chest pain.
#BPH
continue tamsulosin
Continue finasteride
#Lower extremity swelling
Will hold torsemide
#Atherosclerotic plaque/AAA
CT abdomen/pelvis 03/06/2025� Severe calcific atherosclerotic plaque in the abdominal aorta and proximal visceral arteries, Mild fusiform infrarenal abdominal aortic aneurysm (2.3 cm).Severe diverticulosis in the sigmoid colon.
Can consider repeat imaging after assessing clinical progress/reevaluation.
DVT prophylaxis�SCDs
Diet�carb controlled
Discussed with family at bedside
DNR
Discussed with GI this morning
Anticipated Discharge: > 48 hours
Subjective/Interval History
-
Date of Service: June 29, 2025
Last bowel movement last night. No bowel movements today so far. Denies any abdominal pain. Denies any nausea vomiting.
Denies any dizziness.
Denies any chest pain or shortness of breath
Objective Data
-
Labs:
Laboratory Results
06/29/25 06/29/25
01:35 06:05
WBC 4.3 L
Hgb 8.2 L 8.4 L
Hct 25.7 L 27.0 L
Plt Count 194
Sodium 132 L
Potassium 4.4
Chloride 106
Carbon Dioxide 26
BUN 13
Creatinine 0.9
Glucose 115 H
Calcium 8.3 L
Vital Signs:
Vital Signs
Temp Pulse Resp BP Pulse Ox
98.2 F 61 16 130/55 99
06/29/25 07:56 06/29/25 07:56 06/29/25 07:56 06/29/25 07:56 06/29/25 07:56
I&O
06/28/25 06/29/25 06/30/25
06:59 06:59 06:59
Intake Total 1240 / 1240 900 / 900 240 / 240
Balance 1240 / 1240 900 / 900 240 / 240
Physical Exam
-
General: No Apparent Distress
Respiratory: Non Labored Respirations; Negative Accessory Resp Muscle Use
Cardiac: Regular Rhythm and S1/S2; Negative Tachycardic
GI: Soft, Nontender, Nondistended and Normal Bowel Sounds
Neuro: AO x 3
Data Reviewed
-
Labs: Labs Reviewed by me
[2025-06-29 11:55] VITALS: BP 124/62
[2025-06-29] MEDS: NOVOLOG FLEXPEN-LOW RESISTANCE SC ×2 (12:39→17:03)
--- NOTE | 2025-06-29 14:29 | PTCARENOTE ---
Verbal order from MD veliz (GI team) for full liquid diet to begin with dinner. Pt experienced no bloody stool, n/v, or pain thus far today.
[2025-06-29 15:39] VITALS: BP 113/57
[2025-06-29 16:33] LABS: Glucose - Point of Care 169 mg/dl (70-99)
[2025-06-29 16:33] LABS: Glucose - Point of Care 105 mg/dl (70-99)
[2025-06-29] MEDS: PROSCAR 5 MG PO (17:29)
[2025-06-29] MEDS: LIPITOR 20 MG PO (17:29)
[2025-06-29 19:59] VITALS: BP 115/54
[2025-06-29 21:24] LABS: Glucose - Point of Care 165 mg/dl (70-99)
[2025-06-29 23:10] VITALS: BP 117/61
[2025-06-30] VITALS (7 sets, daily range): BP systolic 115–145; BP diastolic 53–68; PULSE 63; O2SAT 93
--- NOTE | 2025-06-30 06:08 | W.PN.GI.CBS2 ---
Today's Communication / Plan
-
No further signs of rebleeding and stable H/h, resolved diverticular hemorrhage. Advance diet as tolerated and recommend follow-up as outpatient. Rest of care as outlined below. GI will sign-off, please re-contact with any questions or concerns.
Assessment / Plan
-
Mr. Hendrickson is a 84 y.o male with a past medical history of A FIb (s/p watchman, off a/c) and history of PUD with recent NSAID use who presented with painless hematochezia concerning for diverticular hemorrhage.
#Hematochezia 2/2
#Diverticular Hemorrhage
#Acute Blood Loss Anemia
#Few, Well-healed Colonic Ulcers
#Recent NSAIDs
#A Fib (off a/c)
S/p EGD/colonoscopy 06/28/25: EGD with mild gastroduodenitis (felt 2/2 NSAIDs) otherwise unremarkable upper GI tract. Colonoscopy revealed large amount of blood throughout colon with fresh red blood within sigmoid colon suggestive of left-sided
diverticular hemorrhage, otherwise normal ileum and few shallow-based well-healed ulcers in the ascending colon (felt 2/2 NSAIDs). Eventual CTA WWO contrast 06/28/2025- Impression: No intraluminal extravasation of contrast to suggest active
hemorrhage at the time of imaging. Mild sigmoid diverticulosis without evidence of diverticulitis
Still passing old blood without concern for recurrent diverticular hemorrhage. Continues to remain HD-stable and stable H/h consistent with resolve diverticular hemorrhage.
Recommendations:
- May advance diet as tolerated to low-fiber, low-residue diet
- Hgb remains stable without any further bleeding, further supporting resolved diverticular hemorrhage
- Await path results from EGD/Colon and suspect NSAID-induced ulcerations in colon given appearance and not source of presentation. Can be followed-up as outpatient
- No plans for repeat endoscopic evaluation at this time
- Reviewed ED-return precautions if patient were to have rebleeding as outpatient
- Counseled on strict avoidance of all NSAIDs
- Rest of ongoing supportive care as per primary team
Discussed with primary internal medicine team. GI will sign-off, please re-contact with any questions or concerns.
Subjective
Subjective
Date of Service: June 30, 2025
- No further recurrent large volume bloody stools
- Remains HD-stable and repeat Hgb stable with Hgb 8.4 -> 8.5
Resting comfortably this AM and denies any recent BM in over 24 hours. No further bleeding or abdominal discomfort. Hoping to have more solid food this AM.
Objective
Data Reviewed
Laboratory Data:
Laboratory Results
Total Bilirubin 0.8 mg/dl (0.2-1.3) 06/27/25 07:24
AST 14 U/L (17-59) L 06/27/25 07:24
ALT < 10 U/L (0-50) 06/27/25 07:24
Alkaline Phosphatase 58 U/L (38-126) 06/27/25 07:24
Lipase 52 U/L (23-300) 06/26/25 08:36
Vital Signs and I&O:
Vital Signs
Temp Pulse Resp BP Pulse Ox
97.5 F 62 20 119/67 98
06/30/25 03:15 06/30/25 03:15 06/30/25 03:15 06/30/25 03:15 06/30/25 03:15
I&O
06/28/25 06/29/25 06/30/25
06:59 06:59 06:59
Intake Total 1240 / 1240 900 / 900 2280 / 2280
Output Total 2905 / 2905
Balance 1240 / 1240 900 / 900 -625 / -625
Physical Exam
Physical Exam
HEENT: Anicteric and Moist mucous membranes
Pulmonary: Other (Normal WOB on room air)
GI: Soft, Non Distended and Non Tender
Extremities: Warm
Neuro: Non Focal
[2025-06-30 06:55] LABS: Hematocrit 26.6 % (39.0-52.0); Hemoglobin 8.5 g/dL (13.0-18.0); Mean Corp Hgb Conc. 32.0 g/dL (33.0-37.0); Mean Corpuscular Volume 100.8 fL (80.0-94.0); Platelet Count 210 10^3/uL (130-400); Red Cell Dist. Width 14.3 % (11.5-14.5)
[2025-06-30 07:13] LABS: Glucose - Point of Care 146 mg/dl (70-99)
[2025-06-30 07:14] LABS: Blood Urea Nitrogen 10 mg/dl (9-20); Calcium 8.8 mg/dl (8.4-10.2); Carbon Dioxide 27 mmol/L (22-30); Chloride 105 mmol/L (98-107); Estimated Creatinine Clearance 76 ml/min; Glucose 118 mg/dl (70-99); Potassium 4.3 mmol/L (3.5-5.1); Sodium 134 mmol/L (135-145); eGFR > 60.00
[2025-06-30] MEDS: VITAMIN D3 (cholecalciferol) 25 MCG PO (09:44)
[2025-06-30] MEDS: NOVOLOG FLEXPEN-LOW RESISTANCE SC ×2 (09:44→12:59)
[2025-06-30] MEDS: NSS (PRESERVATIVE FREE) 10 ML IV ×2 (09:44→20:30)
[2025-06-30] MEDS: TOPROL XL 50 MG PO ×2 (09:44→20:30)
[2025-06-30] MEDS: FLOMAX 0.4 MG PO (09:44)
[2025-06-30] MEDS: VITAMIN B-12 1000 MCG PO (09:44)
[2025-06-30] MEDS: PROTONIX IV 40 MG IV ×2 (09:45→20:30)
--- NOTE | 2025-06-30 11:39 | W.PN.HOSP.TC ---
Addendum entered and electronically signed by Jose Antonio Lopez MD 06/30/25 13:30:
history of paroxysmal A-fib s/p watchman, not on Eliquis
V paced on monitor
Original Note:
Today's Communication/Plan
-
Low residue diet today
Follow H&H
PT OT eval
DC planning
Assessment / Plan
Assessment / Plan
#Acute lower GI bleeding with painless hematochezia secondary to acute diverticular bleed
# Acute blood loss anemia
Colonoscopy showed
Preparation of the colon was poor with an extensive amount of old
blood, clots and stool throughout the colon. This was washed
extensively with fresher red blood within the sigmoid colon upon
withdrawal suggestive of ongoing bleeding.
- The examined portion of the ileum was normal without any old or
fresh blood.
- A few, shallow, well-healed ulcers in the ascending colon.
Endoscopically, suspicious for NSAID-induced ulcerations. Not the
source of presentation. Biopsied.
- Diverticulosis in the entire examined colon. This was most
pronounced within the sigmoid colon with fresh red blood seen within
the sigmoid colon suggestive of a left-sided diverticular hemorrhage.
- The distal rectum and anal verge are normal on retroflexion view.
- The examination was otherwise normal on direct and retroflexion
views.
Stat CT angiogram post colo showed no evidence of active bleeding.
Patient asymptomatic without dizziness. Remains hemodynamically stable. Slow H&H dropped to 8.4 noted but since then have been stable. No bloody bowel movements .
Diet being advanced to low residue diet
Aim to keep HH more than [address] angiogram if there is significant rectal bleeding again
Add ferrous sulfate to assist in erythropoiesis
#DM type II
Hold metformin
Continue with SSI
#CAD s/p stent
Can atorvastatin. Resume aspirin when okay from GI. Patient without angina or chest pain.
#BPH
continue tamsulosin
Continue finasteride
#Lower extremity swelling
Will hold torsemide
#Atherosclerotic plaque/AAA
CT abdomen/pelvis 03/06/2025� Severe calcific atherosclerotic plaque in the abdominal aorta and proximal visceral arteries, Mild fusiform infrarenal abdominal aortic aneurysm (2.3 cm).Severe diverticulosis in the sigmoid colon.
Can consider repeat imaging after assessing clinical progress/reevaluation.
DVT prophylaxis�SCDs
Diet�carb controlled
Discussed with family at bedside
DNR
Discussed with GI today
PT /OT eval
Anticipated Discharge: Within 24 hours
Subjective/Interval History
-
Date of Service: June 30, 2025
Denies N/V or abdo pain
No BM today
Not dizzy
Objective Data
-
Labs:
Laboratory Results
06/30/25
05:55
WBC 4.8
Hgb 8.5 L
Hct 26.6 L
Plt Count 210
Sodium 134 L
Potassium 4.3
Chloride 105
Carbon Dioxide 27
BUN 10
Creatinine 0.9
Glucose 118 H
Calcium 8.8
Vital Signs:
Vital Signs
Temp Pulse Resp BP Pulse Ox
98.4 F 63 16 115/54 96
06/30/25 11:08 06/30/25 11:08 06/30/25 11:08 06/30/25 11:08 06/30/25 11:08
I&O
06/29/25 06/30/25 07/01/25
06:59 06:59 06:59
Intake Total 900 / 900 2280 / 2280
Output Total 2905 / 2905
Balance 900 / 900 -625 / -625
Physical Exam
-
General: Comfortable
Respiratory: Non Labored Respirations; Negative Accessory Resp Muscle Use
Cardiac: Regular Rhythm and S1/S2; Negative Tachycardic
GI: Soft and Nontender
Neuro: AO x 3
Data Reviewed
-
Labs: Labs Reviewed by me
[2025-06-30 11:44] LABS: Glucose - Point of Care 203 mg/dl (70-99)
--- NOTE | 2025-06-30 13:26 | CM ---
CM following for discharge planning needs. Discharge anticipated tomorrow. PT recommends discharge with VN.
Pt is not sure if he needs VN; CM to f/u with patient tomorrow prior to discharge.
[2025-06-30 16:36] LABS: Glucose - Point of Care 205 mg/dl (70-99)
[2025-06-30] MEDS: PROSCAR 5 MG PO (16:36)
[2025-06-30] MEDS: NOVOLOG FLEXPEN-LOW RESISTANCE 2 UNITS SC (16:36)
[2025-06-30] MEDS: LIPITOR 20 MG PO (16:36)
[2025-06-30 21:07] LABS: Glucose - Point of Care 154 mg/dl (70-99)
[2025-07-01 03:09] VITALS: BP 100/54
[2025-07-01 06:56] LABS: Glucose - Point of Care 143 mg/dl (70-99)
[2025-07-01 07:21] VITALS: BP 123/57
[2025-07-01 08:12] LABS: Hematocrit 25.4 % (39.0-52.0); Hemoglobin 7.9 g/dL (13.0-18.0); Mean Corp Hgb Conc. 31.1 g/dL (33.0-37.0); Mean Corpuscular Volume 100.0 fL (80.0-94.0); Platelet Count 216 10^3/uL (130-400); Red Cell Dist. Width 14.6 % (11.5-14.5)
[2025-07-01] MEDS: NOVOLOG FLEXPEN-LOW RESISTANCE SC (08:43)
[2025-07-01] MEDS: NSS (PRESERVATIVE FREE) 10 ML IV (08:47)
[2025-07-01] MEDS: PROTONIX IV 40 MG IV (08:47)
[2025-07-01] MEDS: VITAMIN B-12 1000 MCG PO (08:48)
[2025-07-01] MEDS: FLOMAX 0.4 MG PO (08:48)
[2025-07-01] MEDS: TOPROL XL 50 MG PO (08:48)
[2025-07-01] MEDS: ASPIR LOW (ENTERIC COATED) 81 MG PO (08:48)
[2025-07-01] MEDS: VITAMIN D3 (cholecalciferol) 25 MCG PO (08:48)
[2025-07-01 11:00] VITALS: BP 105/59
--- NOTE | 2025-07-01 11:11 | W.DCSUMMARY ---
Discharge Summary
Discharge Data
Date of Admission: 06/26/25
Date of Discharge: 07/01/25
Total time spent discharging patient (in min): 48
-
Pending Results: No
Hospital Course
Mr. Hendrickson is an 84-year-old male with a medical history of A-fib (status post Watchman, not on anticoagulation), hypertension, CAD (stent x 1), mitral valve repair, and non-insulin diabetes mellitus who presented with painless hematochezia. He
underwent colonoscopy on 06/28/2025 with evidence of sigmoid diverticular bleed which appears to have resolved spontaneously. He did not require blood transfusion. He was advised to avoid NSAIDs and continue taking Protonix. He has been
tolerating a p.o. diet and his vital signs are acceptable. He was medically stable for discharge to home. He will need outpatient follow-up with his PCP for repeat blood work in 2 to 3 days to monitor his hemoglobin levels. His oral iron
supplementation will be changed to every 48 hours in order to avoid constipation and it is recommended that he use [id number] vitamin C with his iron supplementation ordered to improve absorption.
General: No Apparent Distress, Comfortable and Conversant
HEENT: NormoCephalic, Moist mucous membranes, Atraumatic
Respiratory: Clear and Non Labored Respirations
Cardiac: S1/S2 and Regular Rhythm; No Rub or Gallop
GI: Soft, Non Tender, Non Distended and Normal Bowel Sounds
Musculoskeletal: No Edema, no deformity
: NO Leonard
Neuro: Awake, Alert, Nonfocal/grossly intact
Psych: Calm and Intact Judgment/Insight
Discharge Plan
-
Patient Disposition: Home (Routine Discharge)
Discharge Diagnosis/Procedures: Acute lower GI bleeding secondary to acute diverticular bleed, acute blood loss anemia
Diet: Low Residue
Activity Restrictions/Additional Instructions:
You were admitted for treatment of GI bleeding. You were evaluated by karate teacher and underwent colonoscopy on 06/28/2025 which revealed evidence that your bleeding originated from a diverticulum in your sigmoid colon. The bleeding appears
to have resolved spontaneously. Your hemoglobin has dropped due to bleeding. You will need to follow-up with your primary care physician in 2 to 3 days after hospital discharge to arrange for repeat blood work in order to monitor hemoglobin level.
Please continue to avoid NSAIDs, take pantoprazole for acid suppression, and use stool softeners as needed to avoid constipation especially since you are taking supplemental iron. Your scheduled iron supplementation has been changed to every other
day instead of daily. It is also recommended that you take [id number] vitamin C supplements with your iron in order to increase absorption.
Referrals:
Keli Pelayo DO [Family Provider, Internal Medicine]
Timmy Pelayo DO [Active, Gastroenterology] - in one to two months
Prescriptions:
Continued
metformin 500 mg Tablet
500 mg PO BID
atorvastatin [Lipitor] 20 mg Tablet
20 mg PO QPM
metoprolol succinate [Toprol XL] 50 mg Tablet Extended Release 24 Hr
50 mg PO BID
cyanocobalamin (vitamin B-12) 1,000 mcg Tablet
1,000 mcg PO DAILY
torsemide 10 mg Tablet
10 mg PO Q48H
aspirin 81 mg Tablet,Delayed Release (Dr/Ec)
81 mg PO DAILY
tamsulosin 0.4 mg Capsule
0.4 mg PO DAILY
pantoprazole [Protonix] 40 mg Tablet,Delayed Release (Dr/Ec)
40 mg PO DAILY
finasteride 5 mg Tablet
5 mg PO QPM
cholecalciferol (vitamin D3) [Vitamin D3] 25 mcg (1,000 unit) Tablet
25 mcg PO DAILY
Changed
ferrous sulfate 325 mg (65 mg iron) Tablet
325 mg PO Q48H Qty: 0 0RF
Discharge Orders:
Discharge Patient (As Directed); Ordered 07/01/25
Ordered By: Alfonso Lemus
Discharge Date and Time
Print Language: PERSIAN
[2025-07-01 11:17] LABS: Glucose - Point of Care 221 mg/dl (70-99)
--- NOTE | 2025-07-01 11:28 | CM ---
Patient will d/c home today
Met w/ patient bedside, offered HC services, agreeable to [facility] for PT only
[facility] referral placed, TT [facility] liaison
IMM verbally reviewed, copy provided, copy on chart
Per patient, a friend will transport him home
[facility]

Plan: Home w/ [facility]
--- NOTE | 2025-07-01 12:05 | VNURNOTE ---
Home Health Liaison met with patient at bedside to discuss [facility] nurse/therapy, visits, schedule and homebound status. Patient is agreeable and understands that visits at home will be 2-3 x per week to assess and teach medical management. Patient
is aware that [facility] will contact them for start of care within a week after discharge from . Provided contact number for [facility].
PM [facility] referral completed in [facility].
[2025-07-01] MEDS: NOVOLOG FLEXPEN-LOW RESISTANCE 2 UNITS SC (12:27)
--- NOTE | 2025-07-04 12:10 | W.PN.UPDATE ---
Update Note
Progress Note Update
Received phone call from outpatient laboratory with results for RBC of 2.76 on repeat blood work. Called patient to notify him of results. He reports feeling generally well at this time. Lab results are being forwarded to the patient's primary
care physician, Dr. Marv Clark, at [phone].
== END 2025-07-01 14:18 | disposition home health service (06) | DRG 378 ==
LOC: 4 EAST ACU 11:58
PROVIDERS: Student in an Organized Health Care Education/Training Program; ADMITTING PHYSICIAN Internal Medicine; ATTENDING PHYSICIAN Internal Medicine; EMERGENCY PHYSICIAN Student in an Organized Health Care Education/Training Program; FAMILY PHYSICIAN Internal Medicine
PROC: 0DB58ZX Excision of Esophagus, Via Natural or Artificial Opening Endoscopic, Diagnostic (ICD-10-PCS; 2025-06-28)
PROC: 0DBE8ZX Excision of Large Intestine, Via Natural or Artificial Opening Endoscopic, Diagnostic (ICD-10-PCS; 2025-06-28)
DX: K92.2 Gastrointestinal hemorrhage, unspecified (principal); D62 Acute posthemorrhagic anemia; E87.1 Hypo-osmolality and hyponatremia; K63.3 Ulcer of intestine; E11.9 Type 2 diabetes mellitus without complications; N40.0 Benign prostatic hyperplasia without lower urinary tract symptoms; Z66 Do not resuscitate; I48.91 Unspecified atrial fibrillation; I48.0 Paroxysmal atrial fibrillation; Z79.01 Long term (current) use of anticoagulants; D50.9 Iron deficiency anemia, unspecified; E66.9 Obesity, unspecified; Z68.33 Body mass index [BMI] 33.0-33.9, adult; I25.10 Atherosclerotic heart disease of native coronary artery without angina pectoris; K31.89 Other diseases of stomach and duodenum; Z79.82 Long term (current) use of aspirin; Z87.891 Personal history of nicotine dependence
CPT/HCPCS: 74174; 80048; 80053; 82607; 82728; 82746; 82962; 83036; 83540; 83550; 83690; 85014; 85018; 85025; 85027; 86850; 86900; 86901; 88305; 88342; 96374; 97162; 99285; Q9967